=== PATIENT | male | born 1995 | race Two or more races ===

== ENCOUNTER 2019-03-05 06:56 | Inpatient (IN) | payer OTHER ==
[2019-03-05] MEDS ORDERED: KETOROLAC TROMETHAMINE 30 MG/1 ML VIAL IM ONE (07:54)
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
[2019-03-05] MEDS ORDERED: KETOROLAC TROMETHAMINE 30 MG/1 ML VIAL ONE (07:58)
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
[2019-03-05 16:29] LABS: BASO % 0.8 % (0-2.0); EOS % 5.7 % (0-4.5); HEMOGLOBIN 15.7 GM/dL (11.7-16.9); LYMPH % 23.7 % (8-40); MCH 28.4 pg (25.7-33.7); MCHC 32.8 g/dl (32.0-35.9); MEAN CELL VOLUME 86.5 fl (80-96); MEAN PLT VOLUME 7.9 fl (7.5-11.1); MONO % 10.2 % (3.8-10.2); NEUT % 59.6 % (42.8-82.8); PLATELET COUNT 301 K/MM3 (134-434); RBC 5.54 M/mm3 (4.00-5.60); RDW 13.4 % (11.9-15.9); WHITE BLOOD COUNT 7.8 K/mm3 (4.0-10.0)
[2019-03-05] MEDS: oxyCODONE HCL 5 MG TABLET PO PRN (16:47)
[2019-03-05] MEDS: ACETAMINOPHEN 325 MG TABLET (FP) PO PRN (16:48)
[2019-03-05 16:54] VITALS: BMI 37.8
[2019-03-05 16:55] LABS: ALBUMIN 4.2 g/dl (3.4-5.0); BILIRUBIN,TOTAL 0.6 mg/dL (0.2-1); BLOOD UREA NITROGEN 16.6 mg/dL (7-18); CALCIUM 9.3 mg/dL (8.5-10.1); CREATININE 0.9 mg/dL (0.55-1.3); TOT PROT 7.4 g/dl (6.4-8.2)
[2019-03-06] MEDS: ACETAMINOPHEN 325 MG TABLET (FP) PO PRN ×2 (05:41→11:41)
[2019-03-06] MEDS: oxyCODONE HCL 5 MG TABLET PO PRN ×2 (05:41→11:40)
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
[2019-03-06 15:02] VITALS: BP 138/70; PULSE 66; TEMP 97.7
== END 2019-03-06 17:40 | disposition home or self-care (01) | DRG 55 ==
LOC: JER 06:56 → JERBED 10:17 → OBSVTOIN 14:36 → J6S 15:41
PROVIDERS: ADMIT Internal Medicine; ATTEND Internal Medicine
DX: S06.5X0A Traumatic subdural hemorrhage without loss of consciousness, initial encounter (principal); S00.33XA Contusion of nose, initial encounter; R51 Headache; M25.472 Effusion, left ankle; F41.9 Anxiety disorder, unspecified; V89.2XXA Person injured in unspecified motor-vehicle accident, traffic, initial encounter; Y92.488 Other paved roadways as the place of occurrence of the external cause
CPT/HCPCS: 36415; 70450-TC; 70486-TC; 72100-TC-FY; 73610-TC-LT-FY; 73630-TC-LT; 80053; 82550; 84484; 85025; 99284-25; G0378